=== PATIENT | female | born 1955 | race Caucasian/White ===

== ENCOUNTER 2017-06-10 08:54 | Day surgery (SDC) | payer OTHER | END 2017-06-10 11:12 | disposition home or self-care (01) | LOC: GIL 08:54 | DX: Z12.11 Encounter for screening for malignant neoplasm of colon (principal); D12.2 Benign neoplasm of ascending colon; K29.30 Chronic superficial gastritis without bleeding; K31.7 Polyp of stomach and duodenum; K64.4 Residual hemorrhoidal skin tags; K64.8 Other hemorrhoids; I10 Essential (primary) hypertension | CPT/HCPCS: 43239; 88305; 88312 ==